=== PATIENT | female | born 1980 | race Caucasian/White ===

== ENCOUNTER 2017-07-23 14:14 | Emergency (ER) | payer SELFPAY ==
[2017-07-23 14:30] VITALS: TEMP 98.7
--- NOTE | 2017-07-23 15:23 | RAD ---
EXAM DESCRIPTION: Knee,Right Complete CLINICAL HISTORY: 37 years, Female, infrapatellar knee pain COMPARISON: None TECHNIQUE: Three views of the right knee FINDINGS: The knee is normally aligned and mineralized. No fracture or deformity or destructive process is seen. No effusion or mass or foreign body is noted. Mild degenerative changes are evident. IMPRESSION: 1. Negative right knee three views. Electronically signed by: Juan Diego Flynn MD 07/23/2017 3:22 PM CDT
--- NOTE | 2017-07-23 15:29 | ED.PDOC ---
History of Present Illness - General Chief Complaint: General Stated Complaint: right knee pain Time Seen by Provider: 07/23/17 14:21 Source: patient Exam Limitations: no limitations - History of Present Illness Initial Comments: the patient is a 37-year-old female presenting to emergency room secondary to pain in her right patellar tendon just distal to the patella. She had an injury to that tendon more than 25 years ago. She has had off-and-on pain but it's been worse for the last couple weeks. She is neurovascularly preserved. Strength is preserved. Range of motion is preserved. No evidence of erythema. No evidence of abscess. No crepitus. No increased skin warmth. No fevers. No real swelling of the knee joint. No definitive anserine bursitis. Timing/Duration: unsure Severity: moderate Improving Factors: nothing Worsening Factors: nothing Associated Symptoms: denies symptoms Review of Systems - Review of Systems Constitutional: States: no symptoms reported EENTM: States: no symptoms reported Respiratory: States: no symptoms reported Cardiology: States: no symptoms reported Gastrointestinal/Abdominal: States: no symptoms reported Genitourinary: States: no symptoms reported Musculoskeletal: States: see HPI Skin: States: no symptoms reported Neurological: States: no symptoms reported Endocrine: States: no symptoms reported All other Systems: No Change from Baseline Past Medical History (General) - Patient Medical History Hx Seizures: Yes Hx Asthma: No Hx of COPD: No Hx Cardiac Disorders: No Hx Congestive Heart Failure: No Hx Hypertension: No Surgical History: other Family Medical History - Family History Mother Family History: No Known Physical Exam - Physical Exam General Appearance: Alert, Comfortable, No apparent distress Eye Exam: bilateral normal Ears, Nose, Throat: hearing grossly normal Neck: full range of motion Respiratory: no respiratory distress, no accessory muscle use Cardiovascular/Chest: no edema Gastrointestinal/Abdominal: soft Rectal Exam: deferred Extremity: normal range of motion, no pedal edema, no calf tenderness, normal capillary refill, other - see history of present illness 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 It is likely chronic from her previous scar tissue. There is on the right side. She does appear to be having some acute inflammation. She should attempt to stretch the knee with range of motion exercises and stretches. Topical heat may help. She should take 2 Aleve twice a day with food for the next week and then reduce that based on symptom relief. She needs to keep herself well hydrated. If she is still having significant discomfort after a week or 2 then she can follow up with orthopedics for further evaluation. X-ray of the right knee shows no evidence of any acute bony pathology. ER warnings were given. Departure - Departure Clinical Impression: Patellar tendinitis of right knee Disposition: Discharge to Home or Self Care Condition: Fair Departure Forms: ED Discharge - Pt. Copy, Patient Portal Self Enrollment Instructions: DI for Patellar Tendinopathy Diet: regular diet Activity: increase activity as tolerated Additional Instructions: the patient is a 37-year-old female presenting to the emergency room secondary to what appears to be a patellar tendinitis. It is likely chronic from her previous scar tissue. There is on the right side. She does appear to be having some acute inflammation. She should attempt to stretch the knee with range of motion exercises and stretches. Topical heat may help. She should take 2 Aleve twice a day with food for the next week and then reduce that based on symptom relief. She needs to keep herself well hydrated. If she is still having significant discomfort after a week or 2 then she can follow up with orthopedics for further evaluation. X-ray of the right knee shows no evidence of any acute bony pathology. ER warnings were given.
[2017-07-23 15:39] VITALS: BP 117/71; O2SAT 100
== END 2017-07-23 15:38 | disposition home or self-care (01) ==
LOC: ER 14:14
DX: M76.51 Patellar tendinitis, right knee (principal)

== ENCOUNTER 2017-11-19 12:59 | Emergency (ER) | payer SELFPAY ==
[2017-11-19] MEDS ORDERED: KETOROLAC TROMETHAMINE INJ 30 MG/ML VIAL IV ONE (13:47)
[2017-11-19] MEDS ORDERED: ONDANSETRON INJ 4 MG/2 ML VIAL IV ONE (13:47)
[2017-11-19] MEDS ORDERED: SODIUM CHLORIDE 0.9% 1000ML 1,000 ML IVS ONE (13:48)
[2017-11-19 13:56] VITALS: TEMP 99.6
--- NOTE | 2017-11-19 15:32 | CT ---
EXAM DESCRIPTION: Abdoment/Pelvis w/o Contrast CLINICAL HISTORY: 37 years Female, STONE STUDY RIGHT FLANK PAIN COMPARISON: None available. TECHNIQUE: Contiguous 3 mm axial images were obtained from the lung bases to the level of the proximal femora without the administration of intravenous or oral contrast. Sagittal and coronal reconstructions were reviewed. FINDINGS: Limited evaluation of the solid organs due to the lack of intravenous contrast. THORAX: The imaged lower thorax demonstrates no gross abnormality. LIVER: The liver demonstrates normal size and density with no intrahepatic biliary ductal dilatation. GALLBLADDER: Grossly unremarkable. PANCREAS: Appears normal with no cystic or solid lesions. SPLEEN: Normal ADRENAL GLANDS: Normal with no nodules or masses. KIDNEYS: The right kidney is enlarged and edematous with mild perinephric stranding. There is mild hydroureteronephrosis of the right kidney and ureter with no obstructive calculus. Findings most likely represent sequelae of recent passage of a stone versus pyelonephritis. The left kidney and ureter appear normal. STOMACH: The stomach is not well-distended limiting evaluation. SMALL BOWEL: The small bowel loops demonstrate variable degrees of distention with no abnormal dilatation or other signs to suggest bowel obstruction. LARGE BOWEL: Moderate amount of fecal material is noted throughout the colon, consistent with constipation. The appendix is well-visualized and appears normal No evidence of free intraperitoneal air or fluid. RETROPERITONEUM: The abdominal aorta is nonaneurysmal with mild atherosclerosis. The inferior vena cava is normal in size and caliber. No abnormally enlarged retroperitoneal lymph nodes are identified. URINARY BLADDER:The urinary bladder is well-distended with no gross abnormality. The uterus and adnexa appear normal. ADDITIONAL FINDINGS: None. BONES: No degenerative changes are identified in the visualized bones.No evidence of osteophytic or osteoblastic lesions. IMPRESSION: 1. Enlarged and edematous right kidney with mild perinephric stranding. Mild hydroureteronephrosis of the right kidney with no definite obstructive calculus. Findings represent sequelae of recent passage of a stone versus pyelonephritis. 2. Mild constipation. This exam was performed according to our departmental dose-optimization program, which includes automated exposure control, adjustment of the mA and/or kV according to patient size and/or use of iterative reconstruction technique. Electronically signed by: Daisy Hooper MD 11/19/2017 3:31 PM CDT
--- NOTE | 2017-11-19 15:34 | ED.PDOC ---
History of Present Illness - General Chief Complaint: Back Pain or Injury Stated Complaint: right flank pain Time Seen by Provider: 11/19/17 13:47 Source: patient, Vital Signs reviewed Exam Limitations: no limitations Additional Information: 37 YEAR OLD COMPLAINTS OF PAIN IN THE RIGHT FLANK RADIATING TOT HE FRONT OF THE ABDOMEN SINCE YESTERDAY NO FEVER CHILLS NO HEMATURIA NO DYSURIA NO HISTORY OF RENAL CALCULOUS - History of Present Illness Timing/Duration: 24 hours Severity: moderate Improving Factors: nothing Worsening Factors: nothing Associated Symptoms: denies symptoms Allergies/Adverse Reactions: Allergies NO KNOWN ALLERGY Allergy (Verified 11/19/17 13:56) Home Medications: Ambulatory Orders Acetamin W/Cod #3 Tab [Tylenol w/CODEINE #3] 1 ea PO Q6HR PRN #40 tab 11/19/17 Sulfa/Trimeth 800/160 (Ds) Tab [Bactrim DS Tab] 1 ea PO Q12HR #20 tab 11/19/17 Review of Systems - Review of Systems Constitutional: States: no symptoms reported EENTM: States: no symptoms reported Respiratory: States: no symptoms reported Cardiology: States: no symptoms reported Gastrointestinal/Abdominal: States: no symptoms reported Genitourinary: States: no symptoms reported Musculoskeletal: States: no symptoms reported Skin: States: no symptoms reported Neurological: States: no symptoms reported Endocrine: States: no symptoms reported Hematologic/Lymphatic: States: no symptoms reported Past Medical History (General) - Patient Medical History Hx Seizures: Yes Hx Stroke: No Hx Dementia: No Hx Asthma: No Hx of COPD: No Hx Cardiac Disorders: No Hx Congestive Heart Failure: No Hx Pacemaker: No Hx Hypertension: No Hx Thyroid Disease: No Hx Diabetes: No Hx Gastroesophageal Reflux: No Hx Renal Disease: No Hx of HIV: No Hx MRSA: No - Vaccination History Hx Influenza Vaccination: No Hx Pneumococcal Vaccination: No - Social History Hx Tobacco Use: Yes - Triage Comment ED Triage Comment: Patient states she started having right side back pain since last night. Pain radiates down leg and around to stomach. Family Medical History - Family History Mother Family History: No Known Physical Exam - Physical Exam General Appearance: Alert, Obvious distress Eye Exam: bilateral normal, bilateral abnormal EOM, bilateral abnormal pupil, bilateral conjunctivae pale Ears, Nose, Throat: hearing grossly normal, normal ENT inspection, normal pharynx Neck: non-tender, full range of motion, supple Respiratory: chest non-tender, lungs clear, normal breath sounds, no respiratory distress Cardiovascular/Chest: normal peripheral pulses, regular rate, rhythm, no edema, no gallop Gastrointestinal/Abdominal: normal bowel sounds, non tender, soft, no organomegaly, no pulsatile mass Back Exam: CVA tenderness (R) Extremity: normal range of motion, non-tender, normal inspection 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 Copy, Patient Portal Self Enrollment Prescriptions: Acetamin W/Cod #3 Tab [Tylenol w/CODEINE #3] 1 ea PO Q6HR PRN #40 tab PRN Reason: Mild To Moderate Pain Sulfa/Trimeth 800/160 (Ds) Tab [Bactrim DS Tab] 1 ea PO Q12HR #20 tab Home Medications: Ambulatory Orders Acetamin W/Cod #3 Tab [Tylenol w/CODEINE #3] 1 ea PO Q6HR PRN #40 tab 11/19/17 Sulfa/Trimeth 800/160 (Ds) Tab [Bactrim DS Tab] 1 ea PO Q12HR #20 tab 11/19/17
[2017-11-19] MEDS ORDERED: cefTRIAXone SODIUM 1 GM in SODIUM CHL 0.9% 50ML MIN-BAG+ 50 ML IVPB ONE (15:35)
[2017-11-19] MEDS ORDERED: cefTRIAXone SODIUM 1 GM VIAL ONE (15:53)
[2017-11-19] MEDS ORDERED: SODIUM CHL 0.9% 50ML MIN-BAG+ 50 ML IVPB ONE (15:53)
[2017-11-19 16:41] VITALS: BP 110/70; O2SAT 97
== END 2017-11-19 16:40 | disposition home or self-care (01) ==
LOC: ER 12:59
DX: N12 Tubulo-interstitial nephritis, not specified as acute or chronic (principal); Z87.891 Personal history of nicotine dependence
CPT/HCPCS: 36415; 74176; 80053; 81001; 81025; 85025; 87086; J0696; J1885; J2405; J7030; J7050

== ENCOUNTER 2017-12-31 18:57 | Emergency (ER) | payer SELFPAY ==
[2017-12-31 19:18] VITALS: BP 117/71; TEMP 97.1; O2SAT 96
[2017-12-31] MEDS ORDERED: GABAPENTIN 300 MG CAP PO ONE (19:37)
[2017-12-31] MEDS ORDERED: predniSONE 20 MG TAB PO ONE (19:37)
[2017-12-31] MEDS ORDERED: PROMETHAZINE HCL 25 MG TAB PO ONE (19:37)
--- NOTE | 2017-12-31 19:40 | ED.PDOC ---
History of Present Illness - General Chief Complaint: Lower Extremity Injury Stated Complaint: rt leg pain, nauseated Time Seen by Provider: 12/31/17 19:12 Source: patient Exam Limitations: no limitations - History of Present Illness Initial Comments: the patient is a 37-year-old female presenting with acute flare of right lower extremity sciatica starting at approximately the L3-L5 area on the right side. It is made worse with movement. No weakness or loss of sensation. No incontinence. No recent trauma. She has been having this flare for about the last week to 2 weeks. 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 She is currently already taking some gabapentin 300 mg 3 times a day.when the pain is at its worse she seems to have some nausea. Timing/Duration: unsure Severity: moderate Improving Factors: immobilization Worsening Factors: movement Associated Symptoms: denies symptoms Allergies/Adverse Reactions: Allergies NO KNOWN ALLERGY Allergy (Verified 11/19/17 13:56) Home Medications: Ambulatory Orders Cyclobenzaprine HCl [Flexeril] 5 mg PO TID PRN #30 tab 12/31/17 Ondansetron [Zofran Odt] 4 mg PO Q4H PRN #10 tab 12/31/17 predniSONE [Prednisone] 20 mg PO DAILY #7 tab 12/31/17 Review of Systems - Review of Systems Constitutional: States: no symptoms reported EENTM: States: no symptoms reported Respiratory: States: no symptoms reported Cardiology: States: no symptoms reported Gastrointestinal/Abdominal: States: nausea Genitourinary: States: no symptoms reported Musculoskeletal: States: no symptoms reported Skin: States: no symptoms reported Neurological: States: see HPI Endocrine: States: no symptoms reported All other Systems: No Change from Baseline Past Medical History (General) - Patient Medical History Hx Seizures: Yes Hx Stroke: No Hx Dementia: No Hx Asthma: No Hx of COPD: No Hx Cardiac Disorders: No Hx Congestive Heart Failure: No Hx Pacemaker: No Hx Hypertension: No Hx Thyroid Disease: No Hx Diabetes: No Hx Gastroesophageal Reflux: No Hx Renal Disease: No Hx of HIV: No Hx MRSA: No - Vaccination History Hx Influenza Vaccination: No Hx Pneumococcal Vaccination: No - Social History Hx Tobacco Use: Yes - Female History Patient is a Female of Child Bearing Age (10 -59 yrs old): No Family Medical History - Family History Mother Family History: No Known Physical Exam - Physical Exam General Appearance: Alert, Comfortable, No apparent distress Eye Exam: bilateral normal Ears, Nose, Throat: hearing grossly normal, normal pharynx - poor dentition Neck: supple, normal inspection Respiratory: no respiratory distress, no accessory muscle use Cardiovascular/Chest: normal peripheral pulses, regular rate, rhythm, no edema Peripheral Pulses: radial,right: 2+, radial,left: 2+, dorsalis pedis,right: 2+, dorsalis pedis,left: 2+ Gastrointestinal/Abdominal: non tender, soft Rectal Exam: deferred Back Exam: normal inspection, no vertebral tenderness, CVA tenderness (R) - adjacent to L3-L5 on the right. No visible abnormality. 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 She has been instructed on exercises to do to help reduce this problem over time. A small amount of weight loss may also help to reduce pain. Additionally she should gradually increase her gabapentin to 600 mg 3 times a day while she is in a flare. She is also going to be written for prednisone 20 mg daily for the next week to be taken mostly each morning. Topical heat may prove beneficial and stretching exercises do need to be continued. She'll be written for Zofran for as needed use to control any nausea and she should also picker some [id number] generic Nexium to take daily for the next month. ER warnings were given. She needs to keep follow-up with her primary care doctor later this week. I would also recommend that she stop smoking which may help her stomach. Departure - Departure Clinical Impression: Sciatica Qualifiers: Laterality: right Qualified Code(s): M54.31 - Sciatica, right side Gastritis Qualifiers: Gastritis type: unspecified gastritis Chronicity: acute Gastritis bleeding: without bleeding Qualified Code(s): K29.00 - Acute gastritis without bleeding Disposition: Discharge to Home or Self Care Condition: Fair Departure Forms: ED Discharge - Pt. Copy, Patient Portal Self Enrollment Instructions: Sciatica Diet: bland diet Activity: increase activity as tolerated Prescriptions: Cyclobenzaprine HCl [Flexeril] 5 mg PO TID PRN #30 tab PRN Reason: Muscle Spasms Ondansetron [Zofran Odt] 4 mg PO Q4H PRN #10 tab PRN Reason: Vomiting predniSONE [Prednisone] 20 mg PO DAILY #7 tab Home Medications: Ambulatory Orders Cyclobenzaprine HCl [Flexeril] 5 mg PO TID PRN #30 tab 12/31/17 Ondansetron [Zofran Odt] 4 mg PO Q4H PRN #10 tab 12/31/17 predniSONE [Prednisone] 20 mg PO DAILY #7 tab 12/31/17 Additional Instructions: the patient is a 37-year-old female presenting to emergency room secondary to a flare of right lower extremity sciatica related to DJD of the lumbar spine. She has been instructed on exercises to do to help reduce this problem over time. A small amount of weight loss may also help to reduce pain. Additionally she should gradually increase her gabapentin to 600 mg 3 times a day while she is in a flare. She is also going to be written for prednisone 20 mg daily for the next week to be taken mostly each morning. Topical heat may prove beneficial and stretching exercises do need to be continued. She'll be written for Zofran for as needed use to control any nausea and she should also picker some [id number] generic Nexium to take daily for the next month. ER warnings were given. She needs to keep follow-up with her primary care doctor later this week. I would also recommend that she stop smoking which may help her stomach.
== END 2017-12-31 19:54 | disposition home or self-care (01) ==
LOC: ER 18:57
DX: M54.31 Sciatica, right side (principal); K29.00 Acute gastritis without bleeding; M47.817 Spondylosis without myelopathy or radiculopathy, lumbosacral region; Z79.899 Other long term (current) drug therapy
CPT/HCPCS: J7512; Q0169